=== PATIENT | female | born 1990 | race Hispanic/Latino ===

== ENCOUNTER 2016-11-04 14:25 | Emergency (ER) | payer OTHER ==
[~2016-11-04] VITALS: Ht 154.9 cm; Wt 90.9 kg
[~2016-11-04 14:25] MED LIST: Ascorbic Acid PO; DOCU-41 PO; FERR-74 PO; IBUP800T28 PO; OXYC1TAB24 PO; Simethicone PO
[2016-11-04 14:29] VITALS: BP 137/83; PULSE 78; RESP 15; O2SAT 99
--- NOTE | 2016-11-04 14:41 | ED.REPORT ---
HPI-General Illness Date of Service Nov 04, 2016 ED Provider: Dr. Anup Escoto MD History of Present Illness: found out she was on 10/31 LMP was 09/15, due 06/22/2017. cramping constant pain for a week /10 3 para 2, some nausea with headache, no vomiting. dark blood 4 days ago with wiping also reporting bright red Nursing Notes Stated Complaint: 7 WKS WITH CRAMPING Chief Complaint: & Delivery Nursing Notes Reviewed: Yes Allergies: Coded Allergies: No Known Allergies (Verified Allergy, Unknown, 06/24/14) Scheduled ([Ascorbic Acid]) 500 MG TABLET 500 MG PO BID Docusate Sodium (Colace) 100 Mg Capsule 100 MG PO BID Ferrous Sulfate (Feosol) 325 Mg Tablet 325 MG PO TID Scheduled PRN ([Simethicone]) 80 MG CHEW 80 MG PO QID PRN PRN for gas Ibuprofen (Ibuprofen) 800 Mg Tablet 600 MG PO Q6H PRN PRN For Pain oxyCODONE-Acetaminophen 5-325 mg (oxyCODONE-Acetaminophen 5-325 mg) 1 Each Tablet 1-2 TAB PO Q4H PRN PRN For Pain General Time Seen by MD: 14:41 Chief Complaint Other (vaginal cramping) Hx Obtained From: Patient Past Medical History Past Medical History none reported Denies: Asthma, Diabetes mellitus, Hypertension Past Surgical History Reports: , Cholecystectomy Smoking History Current Every Day Smoker (1 cig a day for 15 years), Light Tobacco Smoker Social History Alcohol Use: "Social" Drug Use: THC Occupation single lives by self , no work or school 11/04/2016 Ambulatory Status Independent Review of Systems Full Review of Systems Constitutional: Denies: Chills Eyes: Denies: Blurred left, Blurred right Respiratory: Denies: Dyspnea on exertion Cardiovascular: Denies: Chest pain Female: Reports: Physical Exam Vital Signs Vital Signs Date Time Temp Pulse Resp B/P Pulse Ox O2 Delivery O2 Flow Rate FiO2 11/04/16 18:24 37 67 14 121/81 99 Room Air 11/04/16 18:08 37 67 14 121/81 99 Room Air 11/04/16 14:29 36.4 78 15 137/83 99 Room Air Initial VS: Reviewed, Vital signs normal General/Constitutional: Well-developed, Well-nourished Head / Eyes: Atraumatic, Normocephalic, PERRL ENT: Mucous membranes moist, Conjunctiva normal, No scleral icterus Neck: Supple, Non-tender, Full range of motion Respiratory: Breath sounds normal, Clear to auscultation, No respiratory distress Cardiovascular: Regular rate & rhythm, Heart sounds normal, Intact distal pulses Abdomen / GI: Soft, Non-tender, No guarding, No rebound, No distention Back: No CVA tenderness Lymphatic: No lymphadenopathy Extremities: Vascular intact, Neuro intact, No swelling, No tenderness Skin: Warm, Dry, No cyanosis Neurologic: Alert, Oriented, Nonfocal Psychiatric: Mood/affect normal, Behavior normal, Normal thought content General/Constitutional: Awake, Alert, No acute distress ENT: Atraumatic, Airway patent, Mucous membranes moist, Pharynx NL Respiratory / Chest: Atraumatic, Breath sounds NL, Breath sounds = bilat, No respiratory distress Cardiovascular: Heart rate NL, Regular rhythm, Heart sounds NL Interpretation & Diagnostics Lab Results Interpretation Result Diagram: 11/04/16 1536 11/04/16 1536 Test 11/04/16 15:36 11/04/16 17:46 White Blood Count 10.6th/mm3 (3.8-10.1) Red Blood Count 4.58mil/mm3 (3.90-5.20) Hemoglobin 12.2g/dL (12.0-15.6) Hematocrit 37.3% (35.0-46.0) Mean Corpuscular Volume 81.4fL (81-100) Mean Corpuscular Hemoglobin 26.6pg (27.0-35.0) Mean Corpuscular Hemoglobin Concent 32.7% (32.0-37.0) Red Cell Distribution Width 14.8% (12.3-15.4) Platelet Count 311bil/L (150-400) Sodium Level 139mEq/L (134-144) Potassium Level 3.5mEq/L (3.5-5.2) Chloride Level 104mEq/L (97-108) Carbon Dioxide Level 19mmol/L (18-29) Blood Urea Nitrogen 10mg/dL (6-20) Creatinine 0.44mg/dL (0.57-1.00) Estimat Glomerular Filtration Rate 246mL/min (>59) Glucose Level 84mg/dL (60-99) Calcium Level 8.8mg/dL (8.5-10.1) Total Bilirubin 0.2mg/dL (0.0-1.2) Aspartate Amino Transf (AST/SGOT) 13U/L (0-50) Alanine Aminotransferase (ALT/SGPT) 10U/L (0-32) Alkaline Phosphatase 83U/L (25-150) Total Protein 7.5g/dL (6.4-8.4) Albumin 3.7g/dL (3.4-5.0) HCG Beta Subunit [id number]/mL Urine Color Yellow (YELLOW) Urine Appearance Hazy (CLEAR,HAZY) Urine pH 6.0 (5.0-8.0) Urine Specific [place] 1.025 (1.003-1.035) Urine Protein Negativemg/dL (NEG,TRACE) Urine Glucose (UA) Negativemg/dL (NEGATIVE) Urine Ketones Negativemg/dL (NEGATIVE) Urine Occult Blood Negative (NEGATIVE) Urine Nitrite Negative (NEGATIVE) Urine Bilirubin Negative (NEGATIVE) Urine Urobilinogen Normalmg/dL (NORMAL) Urine Leukocyte Esterase Negative (NEGATIVE) Urine RBC 0-2/hpf (0-2) Urine WBC 0-5/hpf (0-5) Urine Epithelial Cells Few/hpf (NONE-MOD) Urine Crystals None seen (NONE SEEN) Urine Bacteria Few/hpf (NONE-FEW) Urine Hyaline Casts None/lpf (NONE) Urine Granular Casts None seen (NONE SEEN) Urine Waxy Casts None seen (NONE SEEN) Urine Red Blood Cell Casts None seen (NONE SEEN) Urine White Blood Cell Casts None seen (NONE SEEN) Urine Mucus Present (None Seen) Urine Trichomonas None seen (NONE SEEN) Urine Yeast None (NONE SEEN) Urinalysis Comment None Urine Culture Reflexed Not indicated US Focused OB US shows 6 week IUP. Heart rate of 165, also shows old sub chronic bleed. Re-Eval/Medical Decision Med Decision/Clinical Course 25 year old female presents for evualation of bleeding while . US indicates HR of 165, with 6 weeks IUP. Labs are normal as is urine. No sign of etopic Vitals grossly within normal limits Counseled Regarding: Diagnosis, Lab results, Need for follow-up, When/why to return to ED Discharge & Departure Primary Impression: Weeks of gestation: less than 8 weeks Qualified Code: Z3A.01 - Less than 8 weeks gestation of Additional Impression: Vaginal bleeding in patient at less than 20 weeks gestation Disposition: Home Discharge Condition All VS Reviewed: Yes Condition: Improved Patient Instructions: First Trimester (ED) Additional Instructions: You are RH positive. Your HCG is at 5468. The US shows you to be about 6 weeks with a in the uterus. The heart rate is 165. It does show an old sub choronic bleed. Please follow with [facility] [facility]. Start vitamins. REturn with any concerns. Referrals: NOPCP (PCP) Marlyn Gallego MD, Barbara J MD EDSupervising Provider for APC: Anup Escoto MD [employer] Attestation Portions of this note were transcribed by Estefania Batista. I, Dr. Escoto, personally performed the history, physical exam and medical decision-making; I reviewed and confirmed the accuracy of the information in the transcribed note. Signed by: Estefania Batista, 11/04/16. Attending Statement I saw and evaluated the patient in conjunction with the PROJECTS MANAGER. I agree with the plan and findings as documented above. In brief, 25-year-old female presenting to the ED for evaluation of vaginal bleeding in the setting of known early . Well appearing, no acute distress. Nonlabored respirations. Good peripheral perfusion. RRR. No focal abdominal tenderness to palpation. Ultrasound demonstrates IUP with some subchorionic blood. Unclear etiology of her bleeding, however hemodynamically stable. No signs of ectopic. Given reassuring workup thus far, plan discharge home w/ careful return precautions, close outpatient follow up with [facility] WORKER. Patient agreeable to plan as stated, no further questions. copies to: Marlyn Gallego MD, William B MD Nov 04, 2016 14:41 ESTEFANIA BATISTA Nov 04, 2016 14:49 Latisha Black [facility] Nov 04, 2016 16:29
[2016-11-04] MEDS ORDERED: 0.9% Sodium Chloride 1,000 ML IV ONE (14:48)
[2016-11-04 15:41] LABS: Mean Corpuscular Hemoglobin 26.6 pg (27.0-35.0); Mean Corpuscular Volume 81.4 fL (81-100)
[2016-11-04 18:08] VITALS: BP 121/81; PULSE 67; RESP 14; O2SAT 99
[2016-11-04 18:20] LABS: APPEARANCE,URINE HAZY (CLEAR,HAZY); COLOR,URINE YELLOW (YELLOW); OCCULT BLOOD,URINE NEGATIVE (NEGATIVE); UROBILINOGEN,URINE NORMAL (NORMAL)
[2016-11-04 18:24] VITALS: BP 121/81; PULSE 67; RESP 14; O2SAT 99
--- NOTE | 2016-11-04 18:57 | DRSVH ---
PROCEDURE: US OB<14 WKS INDICATIONS: 25 year-old female with vaginal bleeding. OUTSIDE/PRIOR DATING DATA: Last menstrual period (LMP): September 15, 2016. LMP-based estimated date of delivery (ALESSIO): June 22, 2017. First dating scan (date and location): Present study. Estimated date of delivery (ALESSIO) from first dating scan: June 30, 2017. TECHNIQUE: Real-time scanning was performed of the fetus and maternal pelvic organs, with image documentation. COMPARISON: None. FINDINGS: Embryo: Single living intrauterine gestation demonstrates normal heart rate of 173 beats per mi nute. [place]-rump length of 4 mm corresponds with 6 weeks zero days estimated gestational age. Normal yolk sac is present. Amniotic fluid is qualitatively normal in amount. Small alex-gestational sac ble ed measures 10 x 5 mm. Measurement variability in dating: +/- 4 weeks by LMP, +/- 7 days by mean sac diameter (use before 6 weeks gestation if crown-rump length not able to be measured), +/- 5 days by crown-rump length (up t o 8 weeks 6 days gestation), +/- 7 days by crown-rump length (up to 13 weeks 6 days gestation). Maternal organs: Ovaries are normal in size, with right ovarian corpus luteal cyst of . Li mited images through the kidneys demonstrate no hydronephrosis. IMPRESSION: 1. Single living intrauterine gestation, with ultrasound derived estimated gestational age of 6 weeks zero days, +/-5 days. With the same measurement variability, ultrasound derived dating is discordant from dating derived from the last menstrual period, presumably reflecting incorrect clinical dates. 2. 10 x 5 mm perigestational sac bleed may be the source of vaginal bleeding. Dictated by: Kendall Pak M.D. on 11/04/2016 at 18:49 Approved by: Kendall Pak M.D. on 11/04/2016 at 18:55
== END 2016-11-04 18:24 | disposition home or self-care (01) ==
LOC: SED 14:25
DX: O20.8 Other hemorrhage in early pregnancy (principal); Z3A.01 Less than 8 weeks gestation of pregnancy; Z90.49 Acquired absence of other specified parts of digestive tract
CPT/HCPCS: 36415; 76801; 80053; 81000; 84702; 85027; 96360; 99284; J7030